=== PATIENT | male | born 1990 | race Caucasian/White ===

== ENCOUNTER 2023-09-12 15:47 | Emergency (ER) | payer SELFPAY ==
[2023-09-12 16:01] VITALS: BP 129/95; PULSE 62; RESP 16; TEMP 36.4; O2SAT 98
[2023-09-12] MEDS: methylPREDNISolone SOD SUCC 125 MG VIAL IM (16:30)
--- NOTE | 2023-09-12 16:40 | ED.GENADULT ---
HPI - General Adult General Chief complaint: Skin/Abscess/Foreign Body Stated complaint: rash on body Source: patient Mode of arrival: ambulatory Limitations: no limitations History of Present Illness HPI narrative: Patient presents for evaluation of a pruritic rash to the chest, back, abdomen, and proximal thighs bilaterally. Symptom onset approximately 1 week ago. No new lotions, soaps, detergents, topical products, medications or foods. He has been sleeping on a used couch that was purchased from a home salvage store. He has tried taking oral Benadryl and applying topical Benadryl with minimal improvement in his symptoms thereafter. Denies any difficulty breathing or swallowing. Related Data Allergies Allergy/AdvReac Type Severity Reaction Status Date / Time No Known Allergies Allergy Verified 09/12/23 16:06 Review of Systems Review of Systems: CONSTITUTIONAL: Denies fever, chills, or sweats. EYES: Denies visual changes, redness, or discharge. ENT: Denies rhinorrhea, congestion, sore throat, or otalgia. CARDIOVASCULAR: Denies chest pain, palpitations, or edema. RESPIRATORY: Denies cough or dyspnea. GASTROINTESTINAL: Denies abdominal pain, nausea, vomiting, or diarrhea. GENITOURINARY: Denies dysuria or hematuria. SKIN: Reports pruritic rash to the chest, abdomen, back, proximal thighs bilaterally MUSCULOSKELETAL: Denies back pain, joint pain, or myalgia. NEUROLOGIC: Denies headache, numbness, dizziness, or weakness. PSYCHIATRIC: Denies anxiety or depression. [facility] Past Medical History Medical History No pertinent past medical history Surgical History Surgical History No pertinent past surgical history Family History Family History Mother Family history non-contributory Social History Social History Smoking status: Current every day smoker Tobacco type: e-cigarettes/vaping Substance use: current Substance use type: marijuana Additional living arrangements comments: girlfriend Gender identity (if verbalized by the patient): Male Spiritual care concerns: No Exam Narrative: GENERAL: Well-appearing, well-nourished, and in no acute distress. HEAD: Normocephalic, atraumatic. EYES: PERRLA and EOMI. ENT: Nares clear, no rhinorrhea or epistaxis. Mucous membranes moist. Oropharynx without tonsillar hypertrophy exudate or other lesions. Bilateral TMs pearly haas nonbulging NECK: Supple. No adenopathy or masses. No carotid bruits or JVD CHEST: Clear to auscultation. No respiratory distress. No wheezes rales or rhonchi HEART: Regular rate and rhythm. No murmur heard. Normal peripheral pulses. ABDOMEN: Soft, nontender, nondistended, normal active bowel sounds. EXTREMITIES: Normal range of motion. No edema. SKIN: there is an erythematous slightly raised rash to his chest, abdomen, bilateral proximal thighs in a patchy distribution NEURO: No focal deficits. Alert and oriented x3. PSYCH: Normal mood and affect. Course Course Emergency Course: This is a 33-year-old male who presented for evaluation of a pruritic rash. He was given Solu-Medrol while here. Will discharge with prednisone taper. He concerns about cost of medication. I assisted him with [facility] and it appears his prescription would cost about $5.00. I also recommended he take benadryl. He should follow up with primary care provider and go to the ER for difficulty breathing or swallowing. Pt in agreement with plan of care. Level of Care: Express Care Visit Vital Signs Vital signs: Vital Signs Temperature 36.4 C 09/12/23 16:01 Pulse Rate 62 09/12/23 16:01 Respiratory Rate 16 09/12/23 16:01 Blood Pressure 129/95 H 09/12/23 16:01 Pulse Oximetry 98 09/12/23 16:01
== END 2023-09-12 16:57 | disposition home or self-care (01) ==
PROVIDERS: Emergency Provider Nurse Practitioner
DX: T78.40XA Allergy, unspecified, initial encounter (principal)
CPT/HCPCS: 96372; 99203; G0463; J2919